=== PATIENT | male | born 1945 | race Caucasian/White ===

== ENCOUNTER 2019-11-28 10:04 | Outpatient (CLI) | payer MEDICARE, SELFPAY ==
--- NOTE | ~2019-11-28 | DEXA_ITS ---
Bone Density Report Name: Kannan Mirza Age: 74 Sex: Male Ethnicity: White Date of : 1945 Indication: height loss; prior fracture; cancer; Referring Provider: EstevanMushtaq Study: Bone densitometry was performed. Exam Date: November 28, 2019 Accession number: [id number] Bone Density: Region BMD T-score Z-score Classification AP Spine (L1-L4) 0.853 -2.2 -1.1 Osteopenia Femoral Neck (Right) 0.610 -2.4 -1.0 Osteopenia Total Hip (Right) 0.843 -1.3 -0.4 Osteopenia World Health Organization criteria for BMD impression classify patients as: Normal (T-score at or above -1.0), Osteopenia (T-score between -1.0 and -2.5), or Osteoporosis (T-score at or below -2.5). 10-year Fracture Risk: FRAX not reported because: Prior hip or vertebral fracture Clinical Information Provided by Patient: Have had a previous hip or vertebral fracture Has had a low trauma fracture Has the following medical conditions: Cancer Patient maximum height was 73 No regular weight bearing exercise Does not regularly consume dairy products Impression: The patient has low bone mass, based on the Right Femoral Neck T-score. The patient has risk factors, including: previous fracture. Discussion: INCREASED RISK OF FRACTURE DUE TO HISTORY OF LOW TRAUMA FRACTURE. The patient's previous fracture puts the patient at high risk of a future fracture. In untreated patients, the risk of osteoporotic fracture increases approximately two-fold for each 1.0 SD decrease in T-score. Low bone density is not the only risk factor for fracture; also consider factors such as patient's age, frailty or poor health, risk of falling, risk of injury, previous osteoporotic fracture, family history of osteoporosis, cigarette smoking, low body weight, etc. Not everyone with a low trauma fracture has osteoporosis; osteomalacia and other metabolic bone disorders should also be considered. Patients who have osteoporosis should be evaluated for specific diseases and conditions (secondary causes) that may cause or contribute to bone loss and fracture risk. National Osteoporosis Foundation (NOF) recommends pharmacologic intervention for patients with a prior low trauma hip or vertebral fracture regardless of BMD T-score. The patient should follow a healthful lifestyle (good nutrition with adequate calcium and vitamin D, and appropriate weight-bearing exercise). Follow-Up: Consider a repeat BMD and Vertebral Fracture Assessment (VFA) exam in 2 years or sooner if medically necessary, to reassess this patient's status. Reported by: [facility] on 11/28/2019 10:42:00 AM. Reviewed, dictated and finalized at location AClaudine MONTELONGO
== END 2019-11-28 10:05 | disposition home or self-care (01) ==
PROVIDERS: PCP Family Medicine; Visit Provider Internal Medicine Endocrinology, Diabetes & Metabolism
DX: M85.89 Other specified disorders of bone density and structure, multiple sites (principal)
CPT/HCPCS: 77080

== ENCOUNTER 2020-03-28 00:32 | Outpatient (CLI) | payer MEDICARE, SELFPAY ==
[2020-03-28 17:37] LABS: SARS-CoV-2 RNA PCR Negative
== END 2020-03-28 00:33 | disposition home or self-care (01) ==
LOC: ANHCOVIDDT 00:33
PROVIDERS: PCP Family Medicine; Visit Provider Internal Medicine Critical Care Medicine
DX: Z01.812 Encounter for preprocedural laboratory examination (principal); Z20.828 Contact with and (suspected) exposure to other viral communicable diseases
CPT/HCPCS: 87635; C9803; U0003

== ENCOUNTER 2020-03-31 14:32 | Outpatient (CLI) | payer MEDICARE, SELFPAY ==
--- NOTE | 2020-04-28 12:42 | WPDSLEEPSTUD ---
Sleep Study Date of Study: 03/31/20 Ordering Provider: Kathy Wang MD Interpreting Physician: Kathy Wang MD Sleep Study Type: ASV Height: 1.88 m Weight: 99.79 kg Body Mass Index: 28.2 Neck Circumference: 45.72 cm [place]: 7 Reason for Sleep Study He has known central sleep apnea with Catracho-Beaulieu respirations. Has been on ASV and now needs new device. Last echo was October 19, 2018 with an EF of 51% He has cardiomyopathy and hypertension Prior ASV titration was 10/02/2012: optimal setting 10/15/14= EPAP/Min PS/Max PS. Sleep History Kannan Mirza Sr is a 74yo man with cardiomyopathy, known central sleep apnea who has been on ASV since 2012. His current device is old and it does not work properly. He wakes up early in the morning. He denies sleep-related problems including snoring, heartburn or belching, difficulty sleeping with a cold, waking up gasping for breath at night or breathing problems witnessed by others. He does not sweat excessively at night. He denies noticing his heart pounding or beating irregularly at night. He denies falling asleep during the day, sleeping involuntarily, falling asleep while driving or during physical effort. He denies loss of muscle tone was strong emotion, denies daytime difficulties due to excessive sleepiness, denies feeling paralyzed when waking or falling asleep and denies vivid dreamlike scenes upon awakening or falling asleep. He has never for a to go to sleep. He does not have nightmares. He occasionally remembers his dreams. He denies racing thoughts, feelings of sadness, depression, anxiety and denies muscular tension. He does not notice part of his body jerking. He does not kick at night or have crawly or aching feelings in his legs at night. He does not have morning jaw pain, does not grind his teeth at night, does not wake up with pain at night and does not have pain during the day. He does not feel stiff in the morning with sore achy muscles. Normal bedtime is 11:00 p.m. falling asleep within 10 minutes, waking twice at night for about 5 minutes. While awake he will use the bathroom. He wakes the morning at 8:30 a.m.. We can schedule is the same. He does not take naps. Most of the time he feels good in the morning. Habits: Never smoked tobacco. No caffeine alcohol or recreational drugs. [facility] Past Medical History Medical History Atrial arrhythmia Cardiomyopathy Central sleep apnea with Catracho-Beaulieu respiration HTN (hypertension) Prostate cancer Family History Family History Father Colon cancer Mother Cerebrovascular accident Social History Social History Smoking status: Former smoker Alcohol intake: never Medications Home Medications Medication Instructions Recorded Confirmed Type amlodipine 5 mg tablet 5 mg PO DAILY 02/20/20 History ascorbic acid (vitamin C) 500 mg mg PO 02/20/20 History capsule calcium citrate mg PO 02/20/20 History carvedilol 25 mg tablet 25 mg PO Q12H 02/20/20 History lisinopril 40 mg tablet 40 mg PO DAILY 02/20/20 History mexiletine 150 mg capsule 300 mg PO Q8H 02/20/20 History multivitamin 1 tablet PO DAILY 02/20/20 History alendronate 70 mg tablet 70 mg PO WEEKLY 02/21/20 History Sleep Procedure This test was performed using the [employer] multiple channel system including EOG, EEG, submental EMG, EKG, nasal and oral airflow using thermistors and nasal pressure sensors, chest and abdominal belts for body position data, and pulse oximetry. Video monitoring was also performed. The study was scored using CMS guidelines. The patient was started on ASV - adaptive servo ventilation - which automatically adjusts the device to lung mechanics. He used a medium AirFit F20 full face mask he started an initial setting of 5 cm EPAP, 3 minimum pressure support
[2020-04-29 15:53] VITALS: BMI 28.2
== END 2020-03-31 14:33 | disposition home or self-care (01) ==
LOC: ANHCSM 05-12 14:33
PROVIDERS: PCP Family Medicine; Visit Provider Internal Medicine Critical Care Medicine
DX: R06.3 Periodic breathing (principal); G47.61 Periodic limb movement disorder
CPT/HCPCS: 95811

== ENCOUNTER 2022-02-20 20:28 | Emergency (ER) | payer MEDICARE, SELFPAY ==
[2022-02-20] VITALS (17 sets, daily range): BP systolic 122–143; BP diastolic 58–88; PULSE 68–87; RESP 20–31; TEMP 36.7; O2SAT 89–96
--- NOTE | ~2022-02-20 | XR_ITS ---
EXAMINATION: XR chest 2V Exam Date/Time: 02/20/2022 21:05 CDT HISTORY: Weakness, cough x 1 day,loss of appetite Comparison: 01/25/2017. RESULT: Lines, tubes, and devices: None. Lungs and pleura: Diffuse interstitial pattern. Flattening of the hemidiaphragms. No focal consolida tion. Bibasilar atelectasis/scar Cardiomediastinal silhouette: Stable. Other: No acute osseous or upper abdominal finding. IMPRESSION: Interstitial pulmonary edema. Emphysematous change. Reviewed, dictated and finalized at location K.
--- NOTE | 2022-02-20 20:34 | ECG_ITS ---
Measurements Intervals [place] Rate: 80 P: 73 MS: 177 QRS: -29 QRSD: 150 T: 87 QT: 423 QTc: 490 Interpretive Statements SINUS RHYTHM FREQUENT VENTRICULAR PREMATURE COMPLEXES LEFT BUNDLE BRANCH BLOCK ABNORMAL ECG BASELINE ARTIFACT- I, II, AVR NO PREVIOUS ECG AVAILABLE FOR COMPARISON Electronically Signed On 02-21-2022 7:06:56 CDT by Yaron Cruz D.O.
[2022-02-20 20:51] LABS: Basophils Percent Auto 0.2 % (0.2-1.2); Hematocrit 40.1 % (42.0-52.0); Hemoglobin 13.1 g/dL (14.0-18.0); Immature Granulocyte Absolute 0.01 K/mm3 (0.00-0.031); Immature Granulocyte Percent A 0.2 % (0-0.5); Lymphocytes Absolute Auto 0.75 K/mm3 (0.9-3.2); Lymphocytes Percent Auto 17.9 % (18.3-44.2); Mean Corpuscular HGB Conc 32.7 g/dl (32-36); Mean Corpuscular Volume 88.7 fl (80-100); Mean Platelet Volume 9.4 fl (7.4-10.4); Monocytes Absolute Auto 0.8 K/mm3 (0.1-0.6); Monocytes Percent Auto 17.9 % (2.6-8.5); Neutrophils Absolute Auto 2.7 K/mm3 (1.3-6.7); Neutrophils Percent Auto 63.8 % (45.5-73.1); Platelet Count Result 164 k/mm3 (150-375); Red Blood Count 4.52 M/mm3 (4.6-6.20); Red Cell Distribution Width 15.1 % (11.5-14.5); White Blood Count 4.2 K/mm3 (4.5-10.0)
[2022-02-20 21:00] LABS: Alanine Aminotransferase 42 U/L (6-50); Albumin Level 4.1 g/dL (3.5-5.1); Alkaline Phosphatase 89 U/L (38-126); Anion Gap 13 mmol/L (8-16); Aspartate Amino Transferase 63 U/L (17-59); Bilirubin,Total 0.3 mg/dL (0.2-1.3); Blood Urea Nitrogen 28 mg/dL (9-20); Calcium 8.6 mg/dL (8.4-10.2); Carbon Dioxide 24 mmol/L (22-30); Chloride 99 mmol/L (98-107); Estimated CRCL calculation 45 ml/min; Estimated Glomerular Filt Rate 49; Glucose 123 mg/dL (65-110); Potassium 3.4 mmol/L (3.4-5.0); Sodium 136 mmol/L (137-145)
--- NOTE | 2022-02-20 21:07 | ED.GENADULT ---
HPI - General Adult General Chief complaint: Weakness Stated complaint: hard to walk stated difficulty with legs Time Seen by Provider: 02/20/22 20:52 History of Present Illness HPI narrative: 76-year-old male presenting the emergency department for evaluation of increased generalized weakness since Monday. states that since Monday patient has had decreased p.o. intake has been sleeping a lot and has had increased difficulty with ambulation. Patient denies any fevers. Patient denies any nausea vomiting or diarrhea. Patient denies any associated chest pain shortness of breath or abdominal pain. Patient does have an associated cough. Patient did receive the [employer] vaccine but denies ever having COVID. Patient does have a prior history of prostate cancer, hypertension, high cholesterol sleep apnea Related Data Home Medications Medication Instructions Recorded Confirmed amlodipine 5 mg tablet 5 mg PO DAILY 02/20/20 01/10/22 ascorbic acid (vitamin C) 500 mg mg PO 02/20/20 01/10/22 capsule calcium citrate 760 mg calcium/3.5 mg PO 02/20/20 01/10/22 gram oral granules carvedilol 25 mg tablet 25 mg PO Q12H 02/20/20 01/10/22 lisinopril 40 mg tablet 40 mg PO DAILY 02/20/20 01/10/22 mexiletine 150 mg capsule 300 mg PO Q8H 02/20/20 01/10/22 multivitamin 1 tablet PO DAILY 02/20/20 01/10/22 alendronate 70 mg tablet 70 mg PO WEEKLY 02/21/20 01/10/22 zinc acetate 25 mg (zinc) capsule 25 mg PO DAILY 07/20/21 01/10/22 (Galzin) Allergies Allergy/AdvReac Type Severity Reaction Status Date / Time Gadolinium-Containing Allergy Mild Unknown Verified 02/20/22 20:34 Contrast Medi Review of Systems Review of Systems: CONSTITUTIONAL: See HPI EYES: Denies visual changes, redness, or discharge. ENT: Denies rhinorrhea, congestion, sore throat, or otalgia. CARDIOVASCULAR: Denies chest pain, palpitations, or edema. RESPIRATORY: See HPI GASTROINTESTINAL: Denies abdominal pain, nausea, vomiting, or diarrhea. GENITOURINARY: Denies dysuria or hematuria. SKIN: Denies rash or itching. MUSCULOSKELETAL: Denies back pain, joint pain, or myalgia. NEUROLOGIC: Reports generalized weakness with no focal weakness PMF Past Medical History Medical History (Updated 02/20/22 @ 22:25 by Jovany Gaviria MD) Atrial arrhythmia BMI 27.0-27.9,adult BMI 28.0-28.9,adult Cardiomyopathy Central sleep apnea with Catracho-Beaulieu respiration HTN (hypertension) Mixed hyperlipidemia Osteoporosis Polyarticular arthritis Prostate cancer Right hip pain Surgical History Surgical History History of total hip replacement Family History Family History Father Colon cancer Mother Cerebrovascular accident Social History Social History Smoking status: Former smoker Alcohol intake: former Substance use: never Substance use type: does not use Exam Narrative: APPEARANCE: Well appearing, no pain, no distress, well-nourished. HEAD: normocephalic, atraumatic. EYES: PERRLA/EOMI, conjunctivae clear. NOSE: Normal no drainage NECK: Supple. No adenopathy, no masses. RESPIRATORY: Airway patent, respirations nonlabored. Clear to auscultation bilaterally, no rales, rhonchi, wheezing. CARDIOVASCULAR: Regular rate and rhythm without murmurs rubs or gallops. ABDOMINAL: Soft, nontender, nondistended, normal bowel sounds MUSCULOSKELETAL: Moves all extremities. Strength/ROM intact, No edema, No calf tenderness. NEURO: Alert. Cranial nerves II through XII intact. Grossly intact SKIN: Warm, dry. Normal Color Course Course Emergency Course: Patient did test positive for COVID. Patient did have a mild BALTAZAR. Patient was treated with 1 L of normal saline. Urine had red blood cells and white blood cells but was nitrate and leuk esterase negative, urine culture is pending. [facility]
[2022-02-20 22:02] LABS: Influenza A QL RT-PCR Negative (Negative); Influenza B QL RT-PCR Negative (Negative); SARS-CoV-2 RNA PCR Positive
[2022-02-20] MEDS: SODIUM CHLORIDE 0.9% IV 1,000 ML 500 ML IV CONT (22:27)
[2022-02-20 23:07] LABS: Add Urine Microscopic? YES; Appearance Urine Turbid (Clear); Bilirubin Urine 1+ (Negative); Blood Urine 2+ (Negative); Color Urine Brown (Yellow); Glucose Urine UA Negative (Negative); Ketones Urine Trace mg/dL (Negative); Leukocyte Esterase Ur Negative LEU/UL (Negative); Nitrate Urine Negative (Negative); Protein Urine 2+ mg/dL (Negative); Specific Grav Ur >= 1.030 (1.001-1.035); Urobilinogen Urine 0.2 mg/dL (<2.0); pH Urine 5.5 (5.0-9.0)
[2022-02-20 23:14] LABS: Bacteria Urine Trace /hpf; Hyaline Casts Urine 50+ /lpf; Mucus Urine Heavy /lpf; RBC Urine 21-50 /hpf (0-2); Squamous Epithelial Cell Urine Few /hpf (Few)
[2022-02-21] VITALS: PULSE 71; RESP 30; O2SAT 93
[2022-02-21 00:01] VITALS: BP 118/74; PULSE 81; RESP 28; O2SAT 93
[2022-02-21 00:02] VITALS: BP 118/83; PULSE 80; RESP 23; O2SAT 93
== END 2022-02-21 00:24 | disposition home or self-care (01) ==
PROVIDERS: Emergency Provider Emergency Medicine; PCP Family Medicine
DX: U07.1 COVID-19 (principal); N17.9 Acute kidney failure, unspecified; I10 Essential (primary) hypertension; E78.2 Mixed hyperlipidemia; I42.9 Cardiomyopathy, unspecified; G47.31 Primary central sleep apnea; M19.90 Unspecified osteoarthritis, unspecified site; M81.0 Age-related osteoporosis without current pathological fracture; Z85.46 Personal history of malignant neoplasm of prostate; Z96.649 Presence of unspecified artificial hip joint; I49.3 Ventricular premature depolarization; I44.7 Left bundle-branch block, unspecified
CPT/HCPCS: 36415; 71046; 80053; 81001; 85025; 87086; 87088; 87502; 93005; 96360; 99283; C9803; J7030; U0003; U0005

== ENCOUNTER 2023-10-11 14:12 | Outpatient (CLI) | payer MEDICARE, SELFPAY ==
--- NOTE | ~2023-10-11 | DEXA_ITS ---
Bone Density Report Name: VIET COLEMAN Age: 78 Sex: Male Ethnicity: White Date of : 1945 Indication: screening for osteoporosis; height loss; prior fracture; Referring Provider: MORRISPREETI Study: Bone densitometry was performed. Exam Date: October 11, 2023 Accession number: [id number] Bone Density: Region BMD T-score Z-score Classification AP Spine(L1-L4) 0.881 -1.9 -0.7 Osteopenia Femoral Neck (Right) 0.654 -2.0 -0.5 Osteopenia Total Hip (Right) 0.856 -1.2 -0.1 Osteopenia World Health Organization criteria for BMD impression classify patients as: Normal (T-score at or above -1.0), Osteopenia (T-score between -1.0 and -2.5), or Osteoporosis (T-score at or below -2.5). 10-year Fracture Risk: FRAX not reported because: Prior hip or vertebral fracture Clinical Information Provided by Patient: Have had a previous hip or vertebral fracture Has had a low trauma fracture Patient maximum height was 74 No regular weight bearing exercise Does not regularly consume dairy products Onset of menses at age 1 Number of children 0 Impression: The patient has low bone mass, based on the Right Femoral Neck T-score. The patient has risk factors, including: previous fracture. Discussion: INCREASED RISK OF FRACTURE DUE TO HISTORY OF LOW TRAUMA FRACTURE. The patient's previous fracture puts the patient at high risk of a future fracture. In untreated patients, the risk of osteoporotic fracture increases approximately two-fold for each 1.0 SD decrease in T-score. Low bone density is not the only risk factor for fracture; also consider factors such as patient's age, frailty or poor health, risk of falling, risk of injury, previous osteoporotic fracture, family history of osteoporosis, cigarette smoking, low body weight, etc. Not everyone with a low trauma fracture has osteoporosis; osteomalacia and other metabolic bone disorders should also be considered. Patients who have osteoporosis should be evaluated for specific diseases and conditions (secondary causes) that may cause or contribute to bone loss and fracture risk. National Osteoporosis Foundation (NOF) recommends pharmacologic intervention for patients with a prior low trauma hip or vertebral fracture regardless of BMD T-score. The patient should follow a healthful lifestyle (good nutrition with adequate calcium and vitamin D, and appropriate weight-bearing exercise). Follow-Up: Consider a repeat BMD and Vertebral Fracture Assessment (VFA) exam in 2 years or sooner if medically necessary, to reassess this patient's status. Reported by: SHAI on 10/11/2023 2:56:00 PM. Reviewed, dictated and finalized at location AClaudine MONTELONGO
== END 2023-10-11 14:13 | disposition home or self-care (01) ==
LOC: ANHIMG 14:15
PROVIDERS: PCP Family Medicine; Visit Provider Internal Medicine Endocrinology, Diabetes & Metabolism
DX: M85.88 Other specified disorders of bone density and structure, other site (principal)
CPT/HCPCS: 77080

== ENCOUNTER 2024-05-02 17:27 | Emergency (ER) | payer MEDICARE, SELFPAY ==
--- NOTE | ~2024-05-02 | XR_ITS ---
EXAMINATION: XR chest 1V, XR shoulder LT min 2V DATE: 05/02/2024 19:25 INDICATION: Left shoulder fracture with left shoulder pain post fall TECHNIQUE: 1. AP view of the chest was obtained. 2. AP and transscapular Y views of the left shoulder were obtained. COMPARISON: Chest radiograph dated 02/20/22 FINDINGS: Left shoulder: Comminuted fracture the proximal left humerus. This includes a transverse fracture across the surgica l neck with 2.5 cm anteromedial displacement, approximately 45 degree posterior angulation and mild p roximal migration. There is an additional minimally displaced fracture involving the greater tuberosi ty. The humeral head remains normally centered over the left glenoid. Moderate left acromioclavicular osteoarthritis. CHEST: Unchanged mild elevation the left hemidiaphragm. Mild opacities at the left lower lung zone. Right dilia ng remains clear. No pneumothorax or definitive pleural effusion. Heart size is normal. There is wide rolo of the superior mediastinum. There is also mass effect upon the trachea at the thoracic inlet wh ich is deviated towards the right. IMPRESSION: 1. Comminuted two-part fracture of the proximal left humerus. 2. Widening of the superior mediastinum with suggestion of a mass at the left side of the thoracic in let raising concern for malignancy. Recommend further evaluation with postcontrast chest CT. 3. Mild elevation left hemidiaphragm with opacity left lower lung zone most likely atelectasis althou gh differential includes pneumonia. Reviewed, dictated and finalized at location B. ORTHOPEDIC TEAM PHYSICIAN IMPRESSION: 1. Comminuted two-part fracture of the proximal left humerus. 2. Widening of the superior mediastinum with suggestion of a mass at the left s alcides of the thoracic inlet raising concern for malignancy. Recommend further gianluca luation with postcontrast chest CT. 3. Mild elevation left hemidiaphragm with opacity left lower lung zone most lik delmi atelectasis although differential includes pneumonia.
--- NOTE | ~2024-05-02 | XR_ITS ---
EXAMINATION: XR knee LT 3V DATE: 05/02/2024 19:25 INDICATION: Left knee injury. Fall. TECHNIQUE: 3 views of left knee were obtained. COMPARISON: None. FINDINGS: Alignment is normal. No fracture. There is mild tricompartmental osteoarthritis. No knee juliet int effusion. There is superficial infrapatellar soft tissue swelling. IMPRESSION: 1. No fracture. 2. Mild left knee osteoarthritis. Reviewed, dictated and finalized at location A. [employer]
--- NOTE | ~2024-05-02 | XR_ITS ---
EXAMINATION: XR elbow LT 2V DATE: 05/02/2024 19:25 INDICATION: Fall. TECHNIQUE: 2 views of left elbow were obtained. COMPARISON: None. FINDINGS: Alignment is normal. No fracture. There is mild elbow joint osteoarthritis. No elbow joint effusion. There is soft tissue swelling overlying the olecranon. IMPRESSION: 1. No fracture. 2. Mild elbow joint osteoarthritis. Reviewed, dictated and finalized at location A. MAKER
--- NOTE | ~2024-05-02 | CT_ITS ---
EXAMINATION: CT brain wo con DATE: 05/02/2024 20:51 INDICATION: Fall. TECHNIQUE: Computed tomography (CT) of the head was performed without intravenous contrast. The mA wa s adjusted according to patient size. Iterative reconstruction technique was employed. The dose-lengt h product was 756.67 mGy-cm. COMPARISON: None FINDINGS: There are old infarcts in the bilateral basal ganglia and thalami. There are scattered area s of low attenuation in the cerebral white matter. There is no intracranial hemorrhage, acute infarct ion, or abnormal intracranial mass lesion. The ventricles are normal in size. There is mild mucosal t hickening in the paranasal sinuses. The orbits are normal. The mastoid air cells are normal. IMPRESSION: 1. 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 2. Moderate nonspecific cerebral white matter disease, which likely represents chronic small vessel i schemic disease. Reviewed, dictated and finalized at location A. ATOLOGICAL SURGEON IMPRESSION: 1. 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 2. Moderate nonspecific cerebral white matter disease, which likely represents chronic small vessel ischemic disease.
--- NOTE | ~2024-05-02 | CT_ITS ---
EXAMINATION:CT diagnostic chest wo con DATE: 05/02/2024 20:52 INDICATION: Shortness of breath. Abnormal chest radiograph. TECHNIQUE: Computed tomography (CT) of the chest was performed without intravenous contrast. Automate d exposure control and iterative reconstruction technique were employed. The dose-length product (DLP ) was 923.05 mGy-cm. COMPARISON: Chest single view 05/02/2024, chest CT 10/10/11 FINDINGS: The lungs demonstrate mild atelectasis. A calcified left lung nodule is consistent with old granulomatous disease. No pleural effusion. There is a multinodular goiter that extends into the sup erior mediastinum. Cardiomegaly is noted. There is a small pericardial effusion. There are coronary a rtery calcifications. There are changes of cholecystectomy. There is a 17 mm cyst in the liver. There are cysts in the kidneys measuring up to 3.4 cm on the right. There is a comminuted fracture of prox imal left humerus with displaced fracture components at the greater tuberosity and surgical neck. The re are bridging endplate osteophytes at multiple levels in the spine, consistent with diffuse idiopat hic skeletal hyperostosis (DISH). There is severe cervical spondylosis and mild thoracic spondylosis. There are old healed left rib fractures. IMPRESSION: 1. Comminuted three-part fracture of proximal left humerus. 2. Multinodular goiter extending into the mediastinum, worsened from 09/23/2011. 3. Cardiomegaly. Small pericardial effusion. Reviewed, dictated and finalized at location A. GRINDER OPERATOR
--- NOTE | ~2024-05-02 | CT_ITS ---
EXAMINATION: CT cervical spine wo con DATE: 05/02/2024 20:51 INDICATION: Fall. TECHNIQUE: Computed tomography (CT) of the cervical spine was performed without intravenous contrast. Automated exposure control and iterative reconstruction technique were employed. The dose-length pro duct was 522.76 mGy-cm. COMPARISON: None FINDINGS: The thyroid is enlarged and demonstrates heterogeneous attenuation. There is 14 degrees dex troscoliosis of cervicothoracic spine. There is kyphosis of cervical spine. Vertebral body heights ar e normal. There is severely decreased disc height from C2-C3 through C5-C6 and moderately decreased d isc height at C6-C7 and C7-T1. The following disc levels are specifically discussed: C2-C3: There is moderate bilateral uncovertebral joint osteoarthritis. There is severe bilateral face t joint osteoarthritis. There is mild right neural foraminal stenosis. There is no central canal sten osis. C3-C4: There is severe bilateral uncovertebral joint osteoarthritis. There is moderate right and mild left facet joint osteoarthritis. There is mild bilateral neural foraminal stenosis. There is mild ce ntral canal stenosis. C4-C5: There is severe bilateral uncovertebral joint osteoarthritis. There is mild bilateral facet juliet int osteoarthritis. There is mild bilateral neural foraminal stenosis. There is mild central canal st enosis. C5-C6: There is severe bilateral uncovertebral joint osteoarthritis. There is mild bilateral facet juliet int osteoarthritis. There is mild bilateral neural foraminal stenosis. There is mild central canal st enosis. C6-C7: There is mild bilateral uncovertebral joint osteoarthritis. There is mild right and severe lef t facet joint osteoarthritis. There is mild left neural foraminal stenosis. There is no central canal stenosis. C7-T1: There is no uncovertebral joint osteoarthritis. There is severe bilateral facet joint osteoart hritis. There is mild bilateral neural foraminal stenosis. There is no central canal stenosis. IMPRESSION: 1. No fracture. 2. Severe cervical spondylosis. 3. Cervicothoracic dextroscoliosis. 4. Goiter. Reviewed, dictated and finalized at location A. F WELLNESS OFFICER
[2024-05-02 17:27] VITALS: BP 160/117; PULSE 86; RESP 19; O2SAT 94
[2024-05-02 17:49] VITALS: BP 183/84; PULSE 83; RESP 26; TEMP 36.4; O2SAT 94
[2024-05-02 18:16] VITALS: BP 172/134; RESP 28; O2SAT 93
[2024-05-02] MEDS: HYDROmorphone HCL INJ (*CRX) 1 MG/ML SYR 0.5 MG IV PUSH (18:58)
--- NOTE | 2024-05-02 19:17 | ED.FALL ---
HPI - Fall General Chief Complaint: Fall Stated Complaint: L Shoulder pain Time Seen by Provider: 05/02/24 18:01 History of Present Illness HPI Narrative: 78-year-old male presenting with left shoulder pain. He was at the grocery store when his shopping cart got away from him and he tried to go after it and he tripped on his feet landing on his left side. Had immediate left shoulder, elbow, knee pain. Does not think he struck his head or lost consciousness. No complaints other than left shoulder pain. Related Data Home Medications Medication Instructions Recorded Confirmed amlodipine 5 mg tablet 5 mg PO DAILY 02/20/20 04/11/24 ascorbic acid (vitamin C) 500 mg mg PO 02/20/20 04/11/24 capsule calcium citrate mg PO 02/20/20 04/11/24 carvedilol 25 mg tablet 25 mg PO Q12H 02/20/20 04/11/24 lisinopril 40 mg tablet 40 mg PO DAILY 02/20/20 04/11/24 mexiletine 150 mg capsule 300 mg PO Q8H 02/20/20 04/11/24 multivitamin 1 tablet PO DAILY 02/20/20 04/11/24 alendronate 70 mg tablet 70 mg PO WEEKLY 02/21/20 04/11/24 zinc acetate 25 mg (zinc) capsule 25 mg PO DAILY 07/20/21 04/11/24 (Galzin) cholecalciferol (vitamin D3) 25 25 mcg PO DAILY 04/02/24 04/11/24 mcg (1,000 unit) capsule furosemide 20 mg tablet 20 mg PO DAILY PRN 04/02/24 04/11/24 latanoprost 0.005 % eye drops 1 drp RIGHT EYE DAILY 04/02/24 04/11/24 timolol maleate 0.5 % eye drops 1 drp LEFT EYE DAILY 04/02/24 04/11/24 Allergies Allergy/AdvReac Type Severity Reaction Status Date / Time Gadolinium-Containing Allergy Mild Unknown Verified 05/02/24 17:53 Contrast Medi Review of Systems Review of Systems: All systems reviewed & are unremarkable except as noted in HPI and below PMFSH Past Medical History Medical History Atrial arrhythmia Cardiomyopathy Central sleep apnea with Catracho-Beaulieu respiration HTN (hypertension) Mixed hyperlipidemia Osteoporosis Polyarticular arthritis Prostate cancer Right hip pain Surgical History Surgical History History of total hip replacement Family History Family History Father Colon cancer Mother Cerebrovascular accident Social History Social History Smoking status: Former smoker Alcohol intake: former Substance use: never Substance use type: does not use Exam Narrative: GENERAL: Appears to be in pain, pleasant cooperative HEAD: Normocephalic, atraumatic. EYES: PERRLA and EOMI. ENT: Mucous membranes dry NECK: Supple. No midline tenderness CHEST: Clear to auscultation. No respiratory distress. HEART: Regular rate and rhythm ABDOMEN: Soft, nontender, nondistended EXTREMITIES: L shoulder is held against patient's side 2/2 pain, diffusely tender, no erythema or ecchymoses; distal pulses and ROM intact SKIN: Warm, dry, superficial laceration R 4th digit NEURO: Alert and oriented x3. PSYCH: Normal mood and affect. Course Vital Signs Vital signs: Vital Signs Pulse Rate 86 05/02/24 17:27 Respiratory Rate 19 05/02/24 17:27 Blood Pressure 160/117 H 05/02/24 17:27 Pulse Oximetry 94 05/02/24 17:27 Oxygen Delivery Room Air 05/02/24 17:27 Temperature 97.6 F 05/02/24 17:49 Pulse Rate 85 05/02/24 20:30 Respiratory Rate 20 05/02/24 20:30 Blood Pressure 179/93 H 05/02/24 20:02 Pulse Oximetry 92 05/02/24 20:30 Oxygen Delivery Room Air 05/02/24 17:27 MDM - Fall MDM Narrative Medical decision making narrative: 78-year-old male presenting after a mechanical fall. Vitals are stable. Exam remarkable for the above. X-rays reveal left proximal humerus fracture. CT brain and cervical spine show no acute abnormalities. CT chest confirms proximal humerus fracture. No other acute injuries noted. Patient placed in a sling and had adequate pain control with p.o. medications. He and his family felt comfortable with him going home. Recommend close orthopedic follow-up. Appropriate return precautions given. Discharged in stable condition. Differential Diagnosis Differential diagnosis: Likely other (Fall, arm fracture) Medical Records Attestation: I reviewed the patient's medical records. Imaging Data Radiologist's impression: ITS Impressions Chest X-Ray 05/02/24 19:26 IMPRESSION: 1. Comminuted two-part fracture of the proximal left humerus. 2. Widening of the superior mediastinum with suggestion of a mass at the left side of the thoracic inlet raising concern for malignancy. Recommend further evaluation with postcontrast chest CT. 3. Mild elevation left hemidiaphragm with opacity left lower lung zone most likely atelectasis although differential includes pneumonia. Shoulder X-Ray 05/02/24 19:26 IMPRESSION: 1. Comminuted two-part fracture of the proximal left humerus. 2. Widening of the superior mediastinum with suggestion of a mass at the left side of the thoracic inlet raising concern for malignancy. Recommend further evaluation with postcontrast chest CT. 3. Mild elevation left hemidiaphragm with opacity left lower lung zone most likely atelectasis although differential includes pneumonia. Elbow X-Ray 05/02/24 19:36 IMPRESSION: 1. No fracture. 2. Mild elbow joint osteoarthritis. Knee X-Ray 05/02/24 19:37 IMPRESSION: 1. No fracture. 2. Mild left knee osteoarthritis. Head CT 05/02/24 20:53 IMPRESSION: 1. 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 2. Moderate nonspecific cerebral white matter disease, which likely represents chronic small vessel ischemic disease. Cervical Spine CT 05/02/24 20:55 IMPRESSION: 1. No fracture. 2. Severe cervical spondylosis. 3. Cervicothoracic dextroscoliosis. 4. Goiter. Chest CT 05/02/24 20:59 IMPRESSION: 1. Comminuted three-part fracture of proximal left humerus. 2. Multinodular goiter extending into the mediastinum, worsened from 09/23/2011. 3. Cardiomegaly. Small pericardial effusion. Critical Care Time Critical Care Time Critical Care Time: No Discharge Plan Discharge Clinical Impression: Proximal humeral fracture, Fall, Multiple abrasions Patient Disposition: Home, Self-Care Condition: Stable Instructions: Antibiotic Form, Proximal Humerus Fracture (ED) Additional Instructions: The imaging today is concerning for a fracture of your left upper arm. Please continue wearing the sling as discussed. Please follow-up closely with orthopedic surgery at the number below. Please take the Tylenol and naproxen as prescribed. You may use the oxycodone for severe breakthrough pain. If your symptoms worsen or other concerning symptoms arise, please return to the ER. Prescriptions: New acetaminophen [Tylenol Extra Strength] 500 mg tablet 1,000 mg PO Q8-10H PRN (Reason: pain) Qty: 30 0RF naproxen 500 mg tablet 500 mg PO BID PRN (Reason: pain) Qty: 30 0RF oxycodone 5 mg tablet 5 mg PO Q8H PRN (Reason: pain) Qty: 20 0RF No Action cholecalciferol (vitamin D3) 25 mcg (1,000 unit) capsule 25 mcg PO DAILY furosemide 20 mg tablet 20 mg PO DAILY PRN timolol maleate 0.5 % drops 1 drp LEFT EYE DAILY latanoprost 0.005 % drops 1 drp RIGHT EYE DAILY amlodipine 5 mg tablet 5 mg PO DAILY ascorbic acid (vitamin C) 500 mg capsule PO calcium citrate 760 mg calcium /3.5 gram granules PO carvedilol 25 mg tablet 25 mg PO Q12H Rx Instructions: must administer with a meal/food lisinopril 40 mg tablet 40 mg PO DAILY mexiletine 150 mg capsule 300 mg PO Q8H multivitamin Tablet 1 tablet PO DAILY alendronate 70 mg tablet 70 mg PO WEEKLY Galzin 25 mg (zinc) capsule 25 mg PO DAILY Follow-up/Referrals: Ra Sibley MD [Physician] - Marvin Schilling MD [Primary Care Provider] -
[2024-05-02 19:31] VITALS: BP 182/91; PULSE 70; RESP 20; O2SAT 90
[2024-05-02 20:02] VITALS: BP 179/93; PULSE 82; RESP 20; O2SAT 91
[2024-05-02] MEDS: HYDROmorphone HCL INJ (*CRX) 1 MG/ML SYR IV PUSH (20:28)
[2024-05-02 20:30] VITALS: PULSE 85; RESP 20; O2SAT 92
[2024-05-02] MEDS: HYDROcodone/acetaminophen (*CRX) 5-325 MG TABLET 1 TAB PO ×2 (21:43→22:28)
[2024-05-02] MEDS: TETANUS,DIPHTHERIA,AC PERTUSSIS ADULT (0.5 ML) BOOSTRIX IM (21:45)
== END 2024-05-02 22:42 | disposition home or self-care (01) ==
PROVIDERS: Emergency Provider Emergency Medicine; PCP Family Medicine
DX: S42.252A Displaced fracture of greater tuberosity of left humerus, initial encounter for closed fracture (principal); S42.232A 3-part fracture of surgical neck of left humerus, initial encounter for closed fracture; S60.414A Abrasion of right ring finger, initial encounter; Z23 Encounter for immunization; I42.9 Cardiomyopathy, unspecified; I10 Essential (primary) hypertension; E78.2 Mixed hyperlipidemia; G47.31 Primary central sleep apnea; M81.0 Age-related osteoporosis without current pathological fracture; M19.022 Primary osteoarthritis, left elbow; M17.12 Unilateral primary osteoarthritis, left knee; Z96.649 Presence of unspecified artificial hip joint; Z85.46 Personal history of malignant neoplasm of prostate; Z87.891 Personal history of nicotine dependence; I51.7 Cardiomegaly; E04.2 Nontoxic multinodular goiter; M47.812 Spondylosis without myelopathy or radiculopathy, cervical region; R90.82 White matter disease, unspecified; W01.0XXA Fall on same level from slipping, tripping and stumbling without subsequent striking against object, initial encounter
CPT/HCPCS: 70450; 71045; 71250; 72125; 73030; 73070; 73562; 90471; 90715; 96374; 96376; 99284; A4565; A9270; J1171

== ENCOUNTER 2024-05-03 19:58 | Emergency (ER) | payer MEDICARE, SELFPAY ==
--- NOTE | ~2024-05-03 | XR_ITS ---
EXAMINATION: XR chest 1V DATE: 05/03/2024 20:52 INDICATION: Left shoulder pain. TECHNIQUE: A single frontal view of the chest was obtained. COMPARISON: Chest single view 05/02/2024, chest CT 05/02/2024 FINDINGS: There is mild atelectasis at the lung bases. No pleural effusion or pneumothorax. Cardiomeg purvi is noted. Again seen is widening of the superior mediastinum from an intrathoracic goiter. Partia lly visualized is a fracture of proximal left humerus. IMPRESSION: 1. Mild atelectasis at the lung bases. 2. Cardiomegaly. 3. Intrathoracic goiter. 4. Partially visualized fracture of proximal left humerus. Reviewed, dictated and finalized at location A. REPAIRER CENTRAL OFFICE
--- NOTE | ~2024-05-03 | XR_ITS ---
EXAMINATION: XR femur LT min 2V DATE: 05/03/2024 22:10 INDICATION: Left femur fracture status post splinting. TECHNIQUE: 2 views of left femur were obtained. COMPARISON: None. FINDINGS: There is a bipolar left hip hemiarthroplasty in near-anatomic alignment. There is a comminu joni periprosthetic fracture of left femoral diaphysis. The main distal fracture fragment demonstrates one shaft width medial displacement, 13 degrees medial angulation, and internal rotation. There is n o lateral view. Radiopaque foreign bodies overlying the prostate may be brachytherapy seeds. IMPRESSION: 1. Comminuted periprosthetic fracture of left femoral diaphysis. Reviewed, dictated and finalized at location A. NESS PERFORMANCE MANAGER
--- NOTE | ~2024-05-03 | XR_ITS ---
EXAMINATION: XR femur LT min 2V DATE: 05/03/2024 20:52 INDICATION: Left femur fracture. TECHNIQUE: 2 views of left femur on 4 radiographs were obtained. COMPARISON: None. FINDINGS: There is a bipolar left hip hemiarthroplasty in near-anatomic alignment. There is a comminu joni periprosthetic fracture of left femoral diaphysis. The main distal fracture fragment demonstrates severe medial and posterior angulation, overriding, and one shaft width medial displacement. There i s mild left knee osteoarthritis. IMPRESSION: 1. Comminuted periprosthetic fracture of left femoral diaphysis. Reviewed, dictated and finalized at location A. MANAGEMENT SPECIALIST
--- NOTE | ~2024-05-03 | XR_ITS ---
EXAMINATION: XR pelvis 1-2V DATE: 05/03/2024 20:52 INDICATION: Fall. TECHNIQUE: An anteroposterior view of the pelvis was obtained. COMPARISON: None. FINDINGS: There is a bipolar left hip hemiarthroplasty in near-anatomic alignment. Partially visualiz ed is a periprosthetic fracture of left femoral diaphysis. Densities overlying the prostate may be br achytherapy seeds. There is mild right hip osteoarthritis. There is severe lumbar spondylosis. IMPRESSION: 1. Periprosthetic fracture of left femoral diaphysis. 2. Mild right hip osteoarthritis. Reviewed, dictated and finalized at location A. DENTIAL PROGRAM COORDINATOR
[2024-05-03 20:01] VITALS: BP 141/95; PULSE 74; RESP 16; O2SAT 93
[2024-05-03 20:04] VITALS: BP 141/95; PULSE 100; RESP 31; TEMP 36.4; O2SAT 89
[2024-05-03 20:15] VITALS: BP 140/75; PULSE 100; RESP 16; O2SAT 93
[2024-05-03 20:19] VITALS: O2SAT 96
--- NOTE | 2024-05-03 21:02 | ECG_ITS ---
Test Date: 2024-05-03 22:34:01 Measurements Intervals [place] Rate: 110 P: 0 GA: 0 QRS: -21 QRSD: 146 T: 77 QT: 361 QTc: 490 Interpretive Statements SINUS TACHYCARDIA WITH FREQUENT VENTRICULAR PREMATURE COMPLEXES LEFT BUNDLE BRANCH BLOCK BASELINE ARTIFACT- I, II, AVR, AVL, AVF ABNORMAL ECG No previous ECG available for comparison Electronically Signed On 05-04-2024 07:53:00 BLADE WORKER by Yaron Cruz D.O.
--- NOTE | 2024-05-03 21:19 | ED_ITS ---
HPI - Fall General Chief Complaint: Fall <EVER Aponte Last Filed: 05/04/24 01:56> Stated Complaint: glf, left leg pain <EVER Aponte Last Filed: 05/04/24 01:56> Time Seen by Provider: 05/03/24 20:42 <EVER Aponte Last Filed: 05/04/24 01:56> Source: patient <EVER Aponte Last Filed: 05/04/24 01:56> Mode of arrival: EMS <EVER Aponte Last Filed: 05/04/24 01:56> Limitations: no limitations <EVER Aponte Last Filed: 05/04/24 01:56> History of Present Illness HPI Narrative: Patient is an 78-year-old male who presents the ED with report of a fall. Patient was seen in the ED here last night for a fall while grocery shopping. Sustained a proximal humerus fracture. Placed in a sling. Patient tripped and fell in the bathroom today and landed on to his left hip. He does have history of previous left hip replacement. Performed years ago. Patient complains of pain to his left hip/left knee. He did not hit his head or lose conscious. Does not believe he re-injured his left shoulder. Is not on any anticoagulation. Denies numbness. Patient was given morphine EN route to the ED by EMS. He was noted to be slightly hypoxic upon arrival to the ED. Placed on 2 L nasal cannula. Patient does wear oxygen/CPAP at night. <EVER Aponte Last Filed: 05/04/24 01:56> Related Data Home Medications: Home Medications Medication Instructions Recorded Confirmed amlodipine 5 mg tablet 5 mg PO DAILY 02/20/20 04/11/24 ascorbic acid (vitamin C) 500 mg mg PO 02/20/20 04/11/24 capsule calcium citrate mg PO 02/20/20 04/11/24 carvedilol 25 mg tablet 25 mg PO Q12H 02/20/20 04/11/24 lisinopril 40 mg tablet 40 mg PO DAILY 02/20/20 04/11/24 mexiletine 150 mg capsule 300 mg PO Q8H 02/20/20 04/11/24 multivitamin 1 tablet PO DAILY 02/20/20 04/11/24 alendronate 70 mg tablet 70 mg PO WEEKLY 02/21/20 04/11/24 zinc acetate 25 mg (zinc) capsule 25 mg PO DAILY 07/20/21 04/11/24 (Galzin) cholecalciferol (vitamin D3) 25 25 mcg PO DAILY 04/02/24 04/11/24 mcg (1,000 unit) capsule furosemide 20 mg tablet 20 mg PO DAILY PRN 04/02/24 04/11/24 latanoprost 0.005 % eye drops 1 drp RIGHT EYE DAILY 04/02/24 04/11/24 timolol maleate 0.5 % eye drops 1 drp LEFT EYE DAILY 04/02/24 04/11/24 <Nichole Dia PA-C - Last Filed: 05/04/24 01:56> Allergies/Adverse Reactions: Allergies Allergy/AdvReac Type Severity Reaction Status Date / Time Gadolinium-Containing Allergy Mild Unknown Verified 05/02/24 17:53 Contrast Medi <Nichole Dia PA-C - Last Filed: 05/04/24 01:56> Review of Systems Review of Systems: All systems reviewed & are unremarkable except as noted in HPI. <Nichole Dia PA-C - Last Filed: 05/04/24 01:56> All systems reviewed & are unremarkable except as noted in HPI and below <Nichole Dia PA-C - Last Filed: 05/04/24 01:56> [facility] Past Medical History Medical History: Medical History Atrial arrhythmia Cardiomyopathy Central sleep apnea with Catracho-Beaulieu respiration HTN (hypertension) Mixed hyperlipidemia Osteoporosis Polyarticular arthritis Prostate cancer Right hip pain <Nichole Dia PA-C - Last Filed: 05/04/24 01:56> Surgical History Surgical History: Surgical History History of total hip replacement <Nichole Dia PA-C - Last Filed: 05/04/24 01:56> Family History Family History: Family History Father Colon cancer Mother Cerebrovascular accident <Nichole Dia PA-C - Last Filed: 05/04/24 01:56> Social History Social History: Social History Smoking status: Former smoker Alcohol intake: former Substance use: never Substance use type: does not use <Nichole Dia PA-C - Last Filed: 05/04/24 01:56> Exam Narrative: GENERAL: Chronically ill/elderly appearing, well-nourished, non-toxic, in no acute distress. HEAD: Normocephalic, atraumatic. RESPIRATORY: Airway patent, respirations nonlabored. Clear to auscultation bilaterally, no rales, rhonchi, wheezing. On 2L NC. CARDIOVASCULAR: Borderline tachycardic with regular rhythm without murmurs, rubs, or gallops. Peripheral pulses are intact and easily palpable MUSCULOSKELETAL: Limited range of motion of left lower extremity due to pain. Mild shortening and internal rotation of LLE noted. Moderate bruising and swelling to left anterior knee. Large area of swelling/deformity vs hematoma formation to left mid thigh with focal tenderness to palpation. Sensation intact throughout LLE, able to wiggle toes. LUE in sling. SKIN: Warm, dry, normal color. NEURO: A&O X3. Speech clear. No ataxic movements. PSYCHIATRIC: Appropriate mood and affect. Normal interaction. <Nichole Dia PA-C - Last Filed: 05/04/24 01:56> Course STOCK ANALYST/PA Physician Supervision I agree with midlevel documentation; I performed the medical decision making component of this evaluation. I had independent [id number] time with the patient and performed my own independent evaluation and assessment. Patient has a periprosthetic femur fracture and given the significant angulation displaced with a fracture we did place the patient to a traction splint with some better alignment on repeat x-ray imaging. Patient's pain is improved with medications here in the emergency department. He has strong pulsation in his left leg, warm extremity with good neuro vasculature. No expanding compartment or tense compartments his left lower extremity. No present concerning features that would be suspicious for bleeding into his left leg or any development of compartment syndrome. Patient needs transfer to an outside facility that can handle his fracture. Patient was accepted to [facility] at this time as a trauma for evaluation and ambulance was made arranged. Refer to [facility] dictation for remainder of care. Patient left the facility without further incident hemodynamically stable. <Vishal Ewing MD - Last Filed: 05/04/24 08:15> Vital Signs Vital signs: Vital Signs Pulse Rate 74 05/03/24 20:01 Respiratory Rate 16 05/03/24 20:01 Blood Pressure 141/95 H 05/03/24 20:01 Pulse Oximetry 93 05/03/24 20:01 Temperature 36.4 C 05/03/24 20:04 Pulse Rate 102 H 05/03/24 23:46 Respiratory Rate 30 H 05/03/24 23:46 Blood Pressure 130/106 H 05/03/24 23:46 Pulse Oximetry 93 05/03/24 23:46 Oxygen Delivery Nasal Cannula 05/03/24 20:19 Oxygen Flow Rate 2 05/03/24 20:19 <Nichole Dia PA-C - Last Filed: 05/04/24 01:56> Vital Signs Pulse Rate 74 05/03/24 20:01 Respiratory Rate 16 05/03/24 20:01 Blood Pressure 141/95 H 05/03/24 20:01 Pulse Oximetry 93 05/03/24 20:01 Temperature 36.4 C 05/03/24 20:04 Pulse Rate 102 H 05/03/24 23:46 Respiratory Rate 30 H 05/03/24 23:46 Blood Pressure 130/106 H 05/03/24 23:46 Pulse Oximetry 93 05/03/24 23:46 Oxygen Delivery Nasal Cannula 05/03/24 20:19 Oxygen Flow Rate 2 05/03/24 20:19 <Vishal Ewing MD - Last Filed: 05/04/24 08:15> MDM - Fall MDM Narrative Medical decision making narrative: Patient presented to ED status post ground level mechanical fall. Vitals are stable upon arrival. Patient was noted to be slightly hypoxic on room air after receiving morphine by EMS. Placed on 2 L nasal cannula. X-ray of left femur/pelvis showing comminuted periprosthetic femur fx. Consistent with exam. No other fractures noted throughout pelvis or left knee. Neurovascularly intact. Good pedal pulses, temp/color/sensation of LLE. Placed in traction splint with very mild improvement of alignment. No other injuries from fall today. Patient denies any head injury or LOC. Patient w/ proximal humerus fx sustained last night, in sling. Denies recurrent injury today. Patient is not on any anticoagulation. Basic labs otherwise notable for mild transaminitis, hyperbili. Patient has had history of similar records several years ago. Unclear etiology. Without any right upper quadrant pain at this time. H&H is stable. EKG with chronic LBBB, nonspecific ST changes. Discussed case with [facility], however they advised that they do not manage periprosthetic fractures. Discussed case with Dr. Shelton, EDP @ [facility], accepted patient for transfer for trauma eval. Patient and family in agreement with plan and need for transfer. Patient given pain medication prior to leaving facility. VSS remained stable at time of leaving facility. <Nichole Dia PA-C - Last Filed: 05/04/24 01:56> Medical Records Attestation: I reviewed the patient's medical records. <Nichole Dia PA-C - Last Filed: 05/04/24 01:56> Lab Data Attestation: I reviewed the patient's lab results. <Nichole Dia PA-C - Last Filed: 05/04/24 01:56> Result diagrams: 05/03/24 21:58 05/03/24 21:58 <Nichole Dia PA-C - Last Filed: 05/04/24 01:56> Labs: Lab Results 05/03/24 Range/Units 21:58 WBC 13.5 H (4.5-10.0) K/mm3 RBC 4.35 L (4.6-6.20) M/mm3 Hgb 12.9 L (14.0-18.0) g/dL Hct 38.8 L (42.0-52.0) % MCV 89.2 (80-100) fl MCH 29.7 (26-34) pg MCHC 33.2 (32-36) g/dl RDW 15.6 H (11.5-14.5) % Plt Count 233 (150-375) k/mm3 MPV 9.2 (7.4-10.4) fl Immature Gran % (Auto) 0.5 (0-0.5) % Neut % (Auto) 82.6 H (45.5-73.1) % Lymph % (Auto) 6.5 L (18.3-44.2) % [place] % (Auto) 10.1 H (2.6-8.5) % Eos % (Auto) 0.1 (0-4.4) % Baso % (Auto) 0.2 (0.2-1.2) % Lymph # (Auto) 0.88 L (0.9-3.2) K/mm3 [place] # (Auto) 1.4 H (0.1-0.6) K/mm3 Eos # (Auto) 0.0 (0-0.3) K/mm3 Baso # (Auto) 0.0 (0.0-0.1) K/mm3 Abs Immat Gran (auto) 0.07 H (0.00-0.031) K/mm3 Absolute Neuts (auto) 11.2 H (1.3-6.7) K/mm3 Absolute Nucleated RBC 0.000 (0.0-0.012) K/mm3 Nucleated RBC % 0.0 (0.0-0.2) % PT 15.4 H (11.1-14.7) Seconds INR 1.2 APTT 30.5 (22.3-36.8) Seconds Sodium 136 L (137-145) mmol/L Potassium 3.9 (3.4-5.0) mmol/L Chloride 105 (98-107) mmol/L Carbon Dioxide 22 (22-30) mmol/L Anion Gap 9 (4-12) mmol/L BUN 30 H (9-20) mg/dL Creatinine 1.20 (0.7-1.3) mg/dL Estim Creat Clear Calc 51 ml/min Estimated GFR 58 L (59 - ) Glucose 172 H (65-110) mg/dL Calcium 9.0 (8.4-10.2) mg/dL Total Bilirubin 1.7 H (0.2-1.3) mg/dL AST 186 H (17-59) U/L ALT 125 H (6-50) U/L Alkaline Phosphatase 158 H (38-126) U/L Total Protein 8.0 (6.3-8.2) g/dL Albumin 4.1 (3.5-5.1) g/dL Blood Type O Positive Antibody Screen Negative <Nichole Dia PA-C - Last Filed: 05/04/24 01:56> Lab Results 05/03/24 Range/Units 21:58 WBC 13.5 H (4.5-10.0) K/mm3 RBC 4.35 L (4.6-6.20) M/mm3 Hgb 12.9 L (14.0-18.0) g/dL Hct 38.8 L (42.0-52.0) % MCV 89.2 (80-100) fl MCH 29.7 (26-34) pg MCHC 33.2 (32-36) g/dl RDW 15.6 H (11.5-14.5) % Plt Count 233 (150-375) k/mm3 MPV 9.2 (7.4-10.4) fl Immature Gran % (Auto) 0.5 (0-0.5) % Neut % (Auto) 82.6 H (45.5-73.1) % Lymph % (Auto) 6.5 L (18.3-44.2) % [place] % (Auto) 10.1 H (2.6-8.5) % Eos % (Auto) 0.1 (0-4.4) % Baso % (Auto) 0.2 (0.2-1.2) % Lymph # (Auto) 0.88 L (0.9-3.2) K/mm3 [place] # (Auto) 1.4 H (0.1-0.6) K/mm3 Eos # (Auto) 0.0 (0-0.3) K/mm3 Baso # (Auto) 0.0 (0.0-0.1) K/mm3 Abs Immat Gran (auto) 0.07 H (0.00-0.031) K/mm3 Absolute Neuts (auto) 11.2 H (1.3-6.7) K/mm3 Absolute Nucleated RBC 0.000 (0.0-0.012) K/mm3 Nucleated RBC % 0.0 (0.0-0.2) % PT 15.4 H (11.1-14.7) Seconds INR 1.2 APTT 30.5 (22.3-36.8) Seconds Sodium 136 L (137-145) mmol/L Potassium 3.9 (3.4-5.0) mmol/L Chloride 105 (98-107) mmol/L Carbon Dioxide 22 (22-30) mmol/L Anion Gap 9 (4-12) mmol/L BUN 30 H (9-20) mg/dL Creatinine 1.20 (0.7-1.3) mg/dL Estim Creat Clear Calc 51 ml/min Estimated GFR 58 L (59 - ) Glucose 172 H (65-110) mg/dL Calcium 9.0 (8.4-10.2) mg/dL Total Bilirubin 1.7 H (0.2-1.3) mg/dL AST 186 H (17-59) U/L ALT 125 H (6-50) U/L Alkaline Phosphatase 158 H (38-126) U/L Total Protein 8.0 (6.3-8.2) g/dL Albumin 4.1 (3.5-5.1) g/dL Blood Type O Positive Antibody Screen Negative <Vishal Ewing MD - Last Filed: 05/04/24 08:15> Imaging Data Attestation: I personally reviewed and interpreted this imaging study as follows: <Nichole Dia PA-C - Last Filed: 05/04/24 01:56> Radiologist's impression: ITS Impressions Femur X-Ray 05/03/24 20:54 IMPRESSION: 1. Comminuted periprosthetic fracture of left femoral diaphysis. Pelvis X-Ray 05/03/24 20:56 IMPRESSION: 1. Periprosthetic fracture of left femoral diaphysis. 2. Mild right hip osteoarthritis. Chest X-Ray 05/03/24 20:57 IMPRESSION: 1. Mild atelectasis at the lung bases. 2. Cardiomegaly. 3. Intrathoracic goiter. 4. Partially visualized fracture of proximal left humerus. Femur X-Ray 05/03/24 22:14 IMPRESSION: 1. Comminuted periprosthetic fracture of left femoral diaphysis. <Nichole Dia PA-C - Last Filed: 05/04/24 01:56> ECG Data EKG #1: Attestation: I personally reviewed and interpreted this ECG as follows: <Nichole Dia PA-C - Last Filed: 05/04/24 01:56> ECG completion date: 05/03/24 <Nichole Dia PA-C - Last Filed: 05/04/24 01:56> ECG completion time: 22:34 <EVER Aponte Last Filed: 05/04/24 01:56> Prior ECG tracings: available for review (appears similar to previous records 2021, chronic LBBB) <Nichole Dia PA-C - Last Filed: 05/04/24 01:56> EKG Interpretation: tachycardia (110), sinus rhythm, PVCs, non-specific ST changes and LBBB <Nichole Dia PA-C - Last Filed: 05/04/24 01:56> Critical Care Time Critical Care Time Critical Care Time: Yes <Vishal Ewing MD - Last Filed: 05/04/24 08:15> Total Critical Care Time: 35 <Vishal Ewing MD - Last Filed: 05/04/24 08:15> Discharge Plan Discharge Clinical Impression: Lexie-prosthetic fracture of shaft of femur, Fall from ground level, Transaminitis Fracture of proximal end of left humerus Qualifiers: Encounter type: subsequent encounter Fracture type: closed Fracture morphology: unspecified fracture morphology Fracture healing: with routine healing Qualified Code(s): S42.D - Unspecified fracture of upper end of left humerus, subsequent encounter for fracture with routine healing <EVER Aponte Last Filed: 05/04/24 01:56> Patient Disposition: Acute Care Hospital <EVER Aponte Last Filed: 05/04/24 01:56> Condition: Stable <Nichole Dia PA-C - Last Filed: 05/04/24 01:56> Prescriptions: No Action cholecalciferol (vitamin D3) 25 mcg (1,000 unit) capsule 25 mcg PO DAILY furosemide 20 mg tablet 20 mg PO DAILY PRN timolol maleate 0.5 % drops 1 drp LEFT EYE DAILY latanoprost 0.005 % drops 1 drp RIGHT EYE DAILY amlodipine 5 mg tablet 5 mg PO DAILY ascorbic acid (vitamin C) 500 mg capsule PO calcium citrate 760 mg calcium /3.5 gram granules PO carvedilol 25 mg tablet 25 mg PO Q12H Rx Instructions: must administer with a meal/food lisinopril 40 mg tablet 40 mg PO DAILY mexiletine 150 mg capsule 300 mg PO Q8H multivitamin Tablet 1 tablet PO DAILY alendronate 70 mg tablet 70 mg PO WEEKLY Galzin 25 mg (zinc) capsule 25 mg PO DAILY acetaminophen [Tylenol Extra Strength] 500 mg tablet 1,000 mg PO Q8-10H PRN (Reason: pain) Qty: 30 0RF naproxen 500 mg tablet 500 mg PO BID PRN (Reason: pain) Qty: 30 0RF oxycodone 5 mg tablet 5 mg PO Q8H PRN (Reason: pain) Qty: 20 0RF <Nichole Dia PA-C - Last Filed: 05/04/24 01:56> Follow-up/Referrals: Marvin Schilling MD [Primary Care Provider] - <Nichole Dia PA-C - Last Filed: 05/04/24 01:56>
[2024-05-03 22:03] LABS: Basophils Percent Auto 0.2 % (0.2-1.2); Eosinophils Percent Auto 0.1 % (0-4.4); Hematocrit 38.8 % (42.0-52.0); Hemoglobin 12.9 g/dL (14.0-18.0); Immature Granulocyte Absolute 0.07 K/mm3 (0.00-0.031); Immature Granulocyte Percent A 0.5 % (0-0.5); Lymphocytes Absolute Auto 0.88 K/mm3 (0.9-3.2); Lymphocytes Percent Auto 6.5 % (18.3-44.2); Mean Corpuscular HGB Conc 33.2 g/dl (32-36); Mean Corpuscular Hemoglobin 29.7 pg (26-34); Mean Corpuscular Volume 89.2 fl (80-100); Mean Platelet Volume 9.2 fl (7.4-10.4); Monocytes Absolute Auto 1.4 K/mm3 (0.1-0.6); Monocytes Percent Auto 10.1 % (2.6-8.5); Neutrophils Absolute Auto 11.2 K/mm3 (1.3-6.7); Neutrophils Percent Auto 82.6 % (45.5-73.1); Platelet Count Result 233 k/mm3 (150-375); Red Blood Count 4.35 M/mm3 (4.6-6.20); Red Cell Distribution Width 15.6 % (11.5-14.5); White Blood Count 13.5 K/mm3 (4.5-10.0)
[2024-05-03 22:12] LABS: Alanine Aminotransferase 125 U/L (6-50); Albumin Level 4.1 g/dL (3.5-5.1); Alkaline Phosphatase 158 U/L (38-126); Anion Gap 9 mmol/L (4-12); Aspartate Amino Transferase 186 U/L (17-59); Bilirubin,Total 1.7 mg/dL (0.2-1.3); Blood Urea Nitrogen 30 mg/dL (9-20); Carbon Dioxide 22 mmol/L (22-30); Chloride 105 mmol/L (98-107); Estimated CRCL calculation 51 ml/min; Estimated Glomerular Filt Rate 58; Glucose 172 mg/dL (65-110); Potassium 3.9 mmol/L (3.4-5.0); Sodium 136 mmol/L (137-145)
[2024-05-03 22:21] LABS: INR 1.2; Prothrombin Time 15.4 Seconds (11.1-14.7)
[2024-05-03 22:22] LABS: Partial Thromboplastin Time 30.5 Seconds (22.3-36.8)
--- NOTE | 2024-05-03 22:41 | PC.NURSE ---
pt is ao x4 at this time. pt refusing urinary catheter to be placed. family insisting urinary catheter to be placed. pt is ao x4 and able to make his own decision. cade ortiz made aware. no urinary catheter placed at this time.
[2024-05-03 22:45] VITALS: BP 128/66; PULSE 101; RESP 16; O2SAT 93
[2024-05-03] MEDS: ONDANSETRON INJ 4 MG/2 ML VIAL IV PUSH (23:21)
[2024-05-03] MEDS: MORPHINE SULFATE (*CRX) 4 MG/ML INJ IV PUSH (23:22)
[2024-05-03 23:46] VITALS: BP 130/106; PULSE 102; RESP 30; O2SAT 93
== END 2024-05-03 23:48 | disposition short-term general hospital (02) ==
PROVIDERS: Emergency Provider Physician Assistant; PCP Family Medicine
DX: M97.02XA Periprosthetic fracture around internal prosthetic left hip joint, initial encounter (principal); S42.202D Unspecified fracture of upper end of left humerus, subsequent encounter for fracture with routine healing; W18.30XA Fall on same level, unspecified, initial encounter; R74.01 Elevation of levels of liver transaminase levels; I10 Essential (primary) hypertension; E78.2 Mixed hyperlipidemia; Z85.46 Personal history of malignant neoplasm of prostate; Z96.642 Presence of left artificial hip joint
CPT/HCPCS: 36415; 71045; 72170; 73552; 80053; 85025; 85610; 85730; 86850; 86900; 86901; 93005; 96374; 96375; 99285; J2270; J2405